=== PATIENT | male | born 1995 | race Caucasian/White ===

== ENCOUNTER 2018-07-12 08:23 | Emergency (ER) | payer MEDICAID, OTHER ==
[2018-07-12] MEDS: IBUPROFEN 800 MG TAB PO (08:53)
[2018-07-12] MEDS: DIPHENHYDRAMINE 25 MG CAP PO (08:55)
== END 2018-07-12 09:17 | disposition home or self-care (01) ==
LOC: FTE 08:23
DX: K13.0 Diseases of lips (principal)
CPT/HCPCS: 99282; Z7502